=== PATIENT | male | born 1975 | race Caucasian/White ===

== ENCOUNTER → 2018-10-21 08:43 | Outpatient (CLI) | payer MEDICAID, SELFPAY ==
[2018-10-15 09:30] VITALS: BMI 17.9
--- NOTE | 2018-10-21 09:01 | RAD_ITS ---
STUDY: X-RAY - RIGHT FOOT CLINICAL: Male, 43 years old. Polyneuropathy TECHNIQUE: . 2. view(s) of the foot. COMPARISON: None. FINDINGS: Normal talus, calcaneus, and tarsal bones. Normal visualized subtalar, talonavicular, calcaneocuboid, tarsal and tarsometatarsal articulations. Normal metatarsi. Normal metatarsophalangeal joint of the great toe. Normal tibial and fibular sesamoid bones. Normal interphalangeal joint of the great toe. Normal phalanges of the great toe. Normal second through fifth metatarsophalangeal joints. Normal interphalangeal joints and phalanges of the lesser toes. The soft tissue structures are unremarkable. RAD/Foot 2 Views IMPRESSION: Normal x-ray examination of the foot. Electronically Signed: Davon Samano MD at 20:03 EST , Service support ,
--- NOTE | 2018-10-21 09:09 | RAD_ITS ---
STUDY: X-RAY - LEFT FOOT CLINICAL: Male, 43 years old. Polyneuropathy TECHNIQUE: 2 view(s) of the foot. COMPARISON: None. FINDINGS: Normal talus, calcaneus, and tarsal bones. Normal visualized subtalar, talonavicular, calcaneocuboid, tarsal and tarsometatarsal articulations. Normal metatarsi. Normal metatarsophalangeal joint of the great toe. Normal tibial and fibular sesamoid bones. Normal interphalangeal joint of the great toe. Normal phalanges of the great toe. Normal second through fifth metatarsophalangeal joints. Normal interphalangeal joints and phalanges of the lesser toes. The soft tissue structures are unremarkable. RAD/Foot 2 Views IMPRESSION: Normal x-ray examination of the foot. Electronically Signed: Davon Samano MD at 20:04 EST , Service support ,
[2018-10-21 09:31] LABS: Erythrocyte Sedimentation Rate 3 mm/hr (0-15)
[2018-10-21 09:41] LABS: Absolute Lymphocyte Count 2.32 X10^3/ul (0.83-4.51); Basophil# 0.05 X10^3/uL; Basophil% 0.5 % (0-1); Differential Indicated SCAN CRITERIA MET; Eosinophil# 0.11 X10^3/uL; Eosinophils% 1.1 % (0-5); Hemoglobin 15.1 g/dl (13.0-16.5); Lymphocyte # 2.32 X10^3/ul (4.0); Lymphocyte % 22.3 % (19-41); Mean Corp Hgb Conc 32.8 g/gl (32-36); Mean Corpuscular Hgb 35.2 pg (27.0-32.0); Mean Corpuscular Volume 107.2 fL (80-94); Mean Platelet Vol. 9.3 fl (6.2-12.0); Monocyte# 1.72 X10^3/uL; Monocyte% 16.5 % (0-10); Neutrophil # 6.03 X10^3/uL (2.7-7.7); POSITIVE COUNT NO; POSITIVE DIFFERENTIAL YES; POSITIVE MORPHOLOGY NO; Platelet Count 222 K/mm3 (150-450); RBC Distribution Width CV 13.3 % (11.6-14.6); RBC Distribution Width SD 51.8 fl (35.1-43.9); Red Blood Count 4.29 M/mm3 (4.6-6.2); White Blood Count 10.4 K/mm3 (4.4-11.0)
[2018-10-21 10:00] LABS: BUN 8 mg/dL (7-18); Creatinine, Serum 0.68 mg/dL (0.70-1.30); EST Glomerular Filtration Rate 135 mL/min (>60); Glucose 82 mg/dL (74-106)
[2018-10-21 10:01] LABS: AST(SGOT) 52 U/L (15-37); Alanine Aminotransfer ALT/SGPT 42 U/L (16-61); Albumin, Serum 3.9 g/dL (3.2-5.0); Alkaline Phosphatase 90 U/L (45-117); Anion Gap 9 (5-15); BUN/Creat Ratio 11.7 RATIO (10-20); Calcium,Total 9.2 mg/dL (8.5-10.1); Chloride 103 mmol/L (98-107); Est Glom Filt Rate - Afr Amer 163 mL/min (>60); Globulin 4.1 g/dL (2.2-4.2); Potassium 4.4 mmol/L (3.5-5.1); Sodium Level 139 mmol/L (136-145); Thyroid Stim Hormone (TSH) 3.65 uIU/mL (0.358-3.74)
== END ==
PROVIDERS: Family Provider Family Medicine; PCP Family Medicine; Referring Provider Family Medicine; Visit Provider Family Medicine
DX: G62.9 Polyneuropathy, unspecified (principal)
CPT/HCPCS: 36415; 73620; 80053; 84443; 85025; 85652

== ENCOUNTER → 2018-10-22 11:10 | Outpatient (CLI) | payer MEDICAID, SELFPAY ==
[2018-10-15 09:30] VITALS: BMI 17.9
[2018-10-22 12:30] LABS: Vitamin B12 1231 pg/mL (211-911)
== END ==
PROVIDERS: Family Provider Family Medicine; PCP Family Medicine; Referring Provider Family Medicine; Visit Provider Family Medicine
DX: D53.9 Nutritional anemia, unspecified (principal)
CPT/HCPCS: 36415; 82607; 82746; 83921

== ENCOUNTER → 2018-10-28 08:07 | Outpatient (CLI) | payer MEDICAID, SELFPAY ==
[2018-10-15 09:30] VITALS: BMI 17.9
--- NOTE | 2018-10-28 10:50 | NEURO_ITS ---
NCS and/or EMG Patient Report Ordering Doctor: Bal Esposito DATE OF SERVICE: 10/28/18 This is a bilateral lower extremity nerve conduction study and a right lower extremity EMG performed on this 43-year-old male who is otherwise healthy, reports that he drinks alcohol only occasionally. He has had burning pain in h is feet for approximately 1 year. There is no back pain and no history of diabetes. Bilateral lower extremity sensory and motor nerve conduction studies performed. The bilateral common peroneal and tibial motor velocities are slowed with decreased amplitudes and prolonged latencies relatively symmetrically. The sural sensory responses are relatively preserved. There is prolongation of the tibial and common peroneal F-wave latencies bilaterally and the H reflex responses from the bilateral tibial nerve is reduced. Right lower extremity needle electromyography is performed. Muscles evaluated included the extensor digitorum brevis, abductor houses, medial gastrocnemius, anterior tibialis, vastus lateralis and vastus medialis muscles. All muscles demonstrated absence of pathologic spontaneous activity or abnormal insertional activity. Distal muscle did demonstrate large motor units however this abnormality resolved with more proximal muscles. There is no radicular pattern. Impression: Abnormal elective his like study of the lower extremities consistent with moderate to severe peripheral neuropathy likely idiopathic in the absence of other health issues, significant alcohol intake, or vitamin deficiency. Other studies could include serum protein and urine protein electrophoresis, vitamin B12 levels, and hepatic panels.
== END ==
PROVIDERS: Family Provider Family Medicine; PCP Family Medicine; Referring Provider Podiatrist Foot & Ankle Surgery; Visit Provider Podiatrist Foot & Ankle Surgery
DX: G60.9 Hereditary and idiopathic neuropathy, unspecified (principal)
CPT/HCPCS: 95886; 95910

== ENCOUNTER → 2018-12-10 06:58 | Outpatient (CLI) | payer MEDICAID, SELFPAY ==
[2018-11-10 09:04] VITALS: BMI 18.1
--- NOTE | 2018-12-10 07:01 | CT_ITS ---
STUDY: CT TEMPORAL BONES WITHOUT CONTRAST - ATTN: I.A.C. S REASON FOR EXAM: Male, 43 years old. Right-sided mandibular joint fistula. RADIATION DOSAGE (If Supplied By Facility): CTDIvol = ( 67.58 ) mGy, DLP = ( 582.46 ) mGycm TECHNIQUE: The patient was scanned in a multi detector CT scanner. Transaxial imaging was performed without the administration of intravenous contrast material. Sagittal and coronal images were reconstructed. Individualized dose optimization techniques were used for this CT. COMPARISON: None. FINDINGS: Several air bubbles are seen in the soft tissues at the level of the right temporomandibular joint. This extends into the oropharynx medially and overlying the right side of the mandibular ramus on the right side. RIGHT TEMPORAL BONE Normal right internal auditory canal. Normal visualized ossicles and tympanic cavity. Normal right cochlea and semicircular canals. Normal vestibular aqueduct. Normal right petrous carotid artery. Normal right jugular fossa. Partial opacification of the anterior right mastoid air cells. Normal right petrous apex. LEFT TEMPORAL BONE Normal left internal auditory canal. Normal visualized ossicles and tympanic cavity. Normal left cochlea and semicircular canals. Normal vestibular aqueduct. Normal left petrous carotid artery. Normal right jugular fossa. Normal left mastoid air cells. Normal left petrous apex. CT/Orb Sella Post Fossa Ear w/o IMPRESSION: Bubbles are seen in the soft tissues at the level the right temporal mandibular joint. This extends into the oropharynx medially and overlying the right side of the mandibular ramus. Electronically Signed: Alexander Clemens, at 15:54 EDT , Service support ,
== END ==
PROVIDERS: Family Provider Family Medicine; PCP Family Medicine; Referring Provider Otolaryngology; Visit Provider Otolaryngology
DX: M26.69 Other specified disorders of temporomandibular joint (principal)
CPT/HCPCS: 70480

== ENCOUNTER → 2019-07-21 11:06 | Outpatient (CLI) | payer MEDICAID, SELFPAY ==
[2019-07-21 10:40] VITALS: BMI 18.1
[2019-07-21 12:48] LABS: AST(SGOT) 245 U/L (15-37); Alanine Aminotransfer ALT/SGPT 110 U/L (16-61); Albumin, Serum 4.4 g/dL (3.2-5.0); Alkaline Phosphatase 106 U/L (45-117); Bilirubin, Direct 0.17 mg/dL (0.00-0.30); Globulin 3.9 g/dL (2.2-4.2); Protein, Total 8.3 g/dL (6.4-8.2)
[2019-07-27 20:31] LABS: Arsenic 7245 6 ug/L (2-23); Lead, Blood 2 ug/dL (0-4)
== END ==
PROVIDERS: Family Provider Family Medicine; PCP Family Medicine; Visit Provider Family Medicine
DX: G62.9 Polyneuropathy, unspecified (principal); F10.10 Alcohol abuse, uncomplicated
CPT/HCPCS: 36415; 80076; 80320; 82140; 82175; 83655; 83825; G0480

== ENCOUNTER 2020-03-06 09:30 | Outpatient (RCR) | payer MEDICAID, SELFPAY ==
[2020-02-15 14:32] VITALS: BMI 18.1
[2020-02-21 08:30] VITALS: BP 117/64; PULSE 78; RESP 16; TEMP 36.8; BMI 20.4
--- NOTE | 2020-02-21 14:36 | HP.PCM_ITS ---
History of Present Illness Date of Service: 02/21/20 Chief Complaint: Infected tattoos left upper extremity with partial thickness nicole (approximately 5% TBSA). History of Wound: 45 year old man presents to the Wound Center today with increasing redness and pain and swelling around recently placed tattoos left upper extremity. He went to the ED on 02/10/20 for evaluation. He was placed on Bactrim DS and started applying Bacitracin to the tattoo burn wounds. He denies fever. Past Medical History Past Medical History: Chronic Problems (Last Reviewed 02/15/20 @ 14:30 by Riccardo Suarez) Macrocytosis (Chronic) History of acute pancreatitis (Chronic) Depression (Chronic) Legally blind (Chronic) This patient has been legally blind as far as he can recall since his elementary school age. He has been told that he has some degree of retinopathy and that it is not treatable. Hypertension (Chronic) Vision problems (Chronic) Legally Blind Neuropathy (Chronic) High cholesterol (Chronic) Allergies/Adverse Reactions: Allergies doxycycline Allergy (Verified 02/28/20 11:07) Rash Home Medications: Ambulatory Orders Medication Instructions Recorded vitamin B12 1,000 mcg-folic acid 1 tab SUBLINGUAL DAILY tab 10/15/18 400 mcg sublingual tablet Potassium Phosphate,Monobasic 1 tab PO DAILY 11/10/18 [K-Phos Original] Thiamine HCl [Vitamin B-1] 100 mg PO DAILY 11/10/18 ascorbate calcium (vitamin C) 500 500 mg PO DAILY 07/21/19 mg tablet [id number] 1 cap PO TID #90 cap 10/14/19 15,000-47,000-63,000 unit capsule,delayed rel lipase 10,500-protease 1 cap PO TID #90 cap 12/14/19 35,500-amylase 61,500 unit capsule,delayed rel escitalopram oxalate 20 mg tablet 20 mg PO DAILY #90 tab 01/11/20 diclofenac sodium 50 mg 50 mg PO BID #60 tab 01/20/20 tablet,delayed release Doxycycline [Vibramycin] 100 mg PO BID #42 cap 02/21/20 oxycodone-acetaminophen 5 mg-325 1 tab PO 4X/DAY PRN 7 Days #28 tab 02/28/20 mg tablet chlordiazepoxide HCl 10 mg capsule 10 mg PO Q12H #30 cap 03/02/20 metoprolol succinate 50 mg 50 mg PO DAILY #90 tab 03/02/20 tablet,extended release 24 hr pregabalin 75 mg capsule 75 mg PO Q8H #90 cap 03/02/20 Smoking Status: Current every day smoker Review of Systems Constitutional: No body ache, chills, excessive sweating, fatigue, fever(s), frequent falls, headache(s), snoring, weakness, weight change, sleep problems, change in appetite. Eyes: No blurry vision, change in vision, eye pain, light sensitivity. ENT: No abnormal hearing, ear pain, tinnitus, nasal congestion, headache(s), neck pain, sore throat. Respiratory: No cough, shortness of breath, snoring, wheezing. Cardiology: No chest pain at rest, chest pain with exertion, excessive sweating, shortness of breath, dyspnea on exertion, lightheadedness, orthopnea, palpitations. GI: No abdominal pain, change in bowel habits, constipation, cramping, diarrhea, blood in stool, nausea /dyspepsia, vomiting. Genitourinary Male: No burning urination, painful urination, urinary incontinence, urinary frequency, testicle lump, testicle pain. Musculoskeletal: Positive for joint pain (left shoulder pain) and limited range of motion (left shoulder pain);. no abnormal walking, neck pain, numbness or tingling. Skin: Positive for wounds (infected tattoo on left arm);. no dry skin, redness, itching, rash. Neurology: No abnormal walking, abnormal hearing, abnormal speech, dizziness, weakness, frequent falls, headache(s), memory loss, numbness, tingling. Psychiatric: No anxiety, No change in appetite, No depression, No memory loss, No Thoughts of harming yourself/Others. Endocrine: No cold intolerance, excessive sweating, fatigue, flushing, heat intolerance, increased thirst/drinking, increased hunger. Allergy/Immunologic: No itchy eyes, seasonal allergy symptoms, hives, wheezing. Hematologic/Lymphatic: No easy bleeding, easy bruising, enlarged lymph nodes - Physical Exam General: cooperative, comfortable, no acute distress Orientation: alert, oriented x3 Respiratory: clear to auscultation. Heart: regular rate and rhythm. Abdomen: Soft, nondistended. Extremities: Has multiple star tattoos on left upper extremity. Some dermatitis present around them probably from the Bacitracin. Some of the star tattoos show a partial thickness injury like a burn. The partial thickness injuries are scattered and represent about 5% TBSA. Mild swelling present. Partial thickness tattoo injuries are tender to palpation. No axillary adenopathy. Has difficulty with extending the elbow and pronating and supinating the forearm secondary to pain. Hand is nontender. Radial pulses are palpable. Neuro: CN II-XII grossly intact. Psych: Normal affect and mood. Temp Pulse Resp BP 98.2 F 78 16 117/64 02/21/20 08:30 02/21/20 08:30 02/21/20 08:30 02/21/20 08:30 Wound Measurements and Assessment WC - Nurse 1 - General Ulcer Measurement Start: 02/21/20 08:28 Freq: Status: Active Protocol: Activity Type Activity Date Activity User E-Sign Co-Sign Detail Recorded Client Recorded Date Recorded By Document 02/21/20 08:30 BM [id number] 02/21/20 08:40 BMF 02/21/20 08:30 Wound Center Nurse 1 [Ulcer Assessment] #1- L ARM CIRCUMFERENTIAL -Combined with other wound No -Current Size (cm) - Length 48 -Current Size (cm) - Width 28 -Current Size (cm) - Depth 0.2 -Total Square Cm 1344 -Date of Last Picture (Recall this 02/21/20 field) -Photo Taken Yes -Epithelialization None Present -Tunneling No -Undermining/Tunneling No -Circular Undermining No -Exudate Amt Small -Exudate Type Serosanguineous -Wound Margin Distinct, Outline Attached -Granulation Amt Small (1-33%) -Granulation Quality Red -Slough/Fibrin Yes -Necrosis Amt Large (67-100%) -Necrotic Tissue Type Adherent Slough -Texture (Geeta-wound Skin Appearance) Assessed, Excoriation, Localized Edema -Moisture (Geeta-wound Skin Appearance Assessed, ) Maceration -Color (Geeta-wound Skin Appearance) Assessed, Erythema -Temperature (Geeta-wound Skin No Abnormality Appearance) (Pt Warm) -Tenderness on Palpation (Geeta-wound Yes Skin Appearance) -Ulcer Cleansing SOAPY WATER -Foul Odor after Cleansing No -Anesthetic Used 4% Lidocaine Solution WC - Nurse 2 - General Ulcer CM Notes Start: 02/21/20 08:28 Freq: Status: Active Protocol: Activity Type Activity Date Activity User E-Sign Co-Sign Detail Recorded Client Recorded Date Recorded By Document 02/21/20 08:55 JF [id number] 02/21/20 09:02 02/21/20 08:55 Wound Center Nurse 2 [Procedure/Treatment] -Correct Patient No -Correct Side, Site, Position No -Correct Procedure No -Procedure Performed No -Wound/Ulcer Outcome Not Healed [See Physician Procedure note for Specifics] Pain Scale: 0-10 Numeric [Pain] -Is Patient Pain Free? Yes Debridement Note Post-Debridement Measurements/Treatment WC - Nurse 2 - General Ulcer CM Notes Start: 02/21/20 08:28 Freq: Status: Active Protocol: Activity Type Activity Date Activity User E-Sign Co-Sign Detail Recorded Client Recorded Date Recorded By Document 02/21/20 08:55 JF [id number] 02/21/20 09:02 02/21/20 08:55 Wound Center Nurse 2 #1- L ARM CIRCUMFERENTIAL -Correct Patient No -Correct Side, Site, Position No -Correct Procedure No -Procedure Performed No -Wound/Ulcer Outcome Not Healed Pain Scale: 0-10 Numeric Is Patient Pain Free? Yes Wound debrided: #1 Left upper extremity. Laterality: Left Wound Grade/Stage: 2. No debridement was completed today Assessment/Plan Assessment: 1. Infected tattoo partial thickness burn wounds left upper extremity, about 5% TBSA. 2. Placement recent tattoos left upper extremity. 3. Smoker. Plan: Patient has infected tattoos partial thickness wounds left upper extremity. There is some associated dermatitis from the antibiotic ointment. Will stop the antibiotic ointment. For the partial thickness wounds, will treat as a burn wound and start Silvadene twice a day. Instructed the patient that it is important to wash off in the shower the previous Silvadene before applying new Silvadene. For the swelling and redness, will start Doxycycline antibiotics. The wounds are quite tender. Will write a script for Percocet for pain (40 tabs). Encourage range of motion exercises to minmize stiffness. May need evaluation by OT if stiffness develops. Discussed with the patient that depending on how the healing process occurs, operative debridement and skin grafting may be necessary. He is aware of that possibility and wishes to proceed with the current plan of aggressive wound care and antibiotics. Followup one week. Encouraged patient to stop smoking as it may have tasha terious effects on wound heailng. Office Visits / Consults: [id number] OV L4 New - ICD-10 - T22.292A, L92.3, F17.200
[2020-02-28 09:06] VITALS: BP 125/79; PULSE 79; RESP 18; TEMP 37; BMI 20.4
--- NOTE | 2020-02-28 09:15 | WC ---
PT C/O ITCHING AND NEW RASH ON ABD FACE, ARMS , BUTTOCKS. PT CALLED PCP AND TO0LD TO STOP ATB CREAM AND ORAL ATB
--- NOTE | 2020-02-28 11:11 | PN.PCM_ITS ---
(1) Tattoo reaction Status: Acute Code(s): L92.3 - Foreign body granuloma of the skin and subcutaneous tissue (2) Partial thickness burn of multiple sites of left upper extremity Status: Acute Code(s): T22.292A - Burn of second degree of multiple sites of left shoulder and upper limb, except wrist and hand, initial encounter Comment: infected tattoos, about 5% TBSA (3) Smoker Status: Chronic Code(s): F17.200 - Nicotine dependence, unspecified, uncomplicated Type of Wound Date of Service: 02/28/20 Chief Complaint: Infected tattoos left upper extremity with partial thickness nicole (approximately 5% TBSA). History of Wound: 45 year old man presents to the Wound Center with increaseing redness and pain and swelling around recently placed tattoos left upper extremity. He went to the ED on 02/10/20 for evaluation. He was placed on Bactrim DS and started applying Bacitracin to the tattoo burn wounds. Wound care - Silvedene cream. He was placed on Doxycycline after he had completed the Bactrim DS. He states that developed an itchy rash all over his body. He phoned his PCP and they had him stop the Doxycycline and the Silvadene cream. We will restrart the daily Silvaden. Instructed to make sure to wash the old silvadene cream off of arm before applying more. He denies fever. Progress of Wound: Stable - Physical Exam Vital Signs Temp Pulse Resp BP 98.6 F 79 18 125/79 H 02/28/20 09:06 02/28/20 09:06 02/28/20 09:06 02/28/20 09:06 General: Alert, Oriented x3 HEENT: Atraumatic Oral: Moist Mucosa Lungs: Normal air movement Cardiovascular: Regular rate Abdomen: Soft Extremities: Capillary Refill Less than 3 Seconds Skin: Ulcer/ Wound - Left arm cluster opened area from having recently had multiple tattoos placed on arm. Over all the skin is pink and very tender to touch. Wound Measurements and Assessment WC - Nurse 1 - General Ulcer Measurement Start: 02/21/20 08:28 Freq: Status: Active Protocol: Activity Type Activity Date Activity User E-Sign Co-Sign Detail Recorded Client Recorded Date Recorded By Document 02/28/20 09:06 JOSE [id number] 02/28/20 09:13 RB 02/28/20 09:06 Wound Center Nurse 1 [Ulcer Assessment] #1- L ARM CIRCUMFERENTIAL -Combined with other wound No -Current Size (cm) - Length 25 -Current Size (cm) - Width 7 -Current Size (cm) - Depth 0.2 -Total Square Cm 175 -Tunneling No -Undermining/Tunneling No -Circular Undermining No -Exudate Amt Medium -Exudate Type Serosanguineous -Wound Margin Flat & Intact -Granulation Amt Medium (34-66%) -Granulation Quality [place],Red -Slough/Fibrin Yes -Necrosis Amt Small (1-33%) -Necrotic Tissue Type Adherent Slough -Structure Exposed N/A -Texture (Geeta-wound Skin Appearance) Assessed -Moisture (Geeta-wound Skin Appearance Assessed ) -Color (Geeta-wound Skin Appearance) Erythema -Temperature (Geeta-wound Skin No Abnormality Appearance) (Pt Warm) -Tenderness on Palpation (Geeta-wound No Skin Appearance) -Ulcer Cleansing Wound Cleanser -Foul Odor after Cleansing No -Anesthetic Used 4% Lidocaine Solution WC - Nurse 2 - General Ulcer CM Notes Start: 02/21/20 08:28 Freq: Status: Active Protocol: Activity Type Activity Date Activity User E-Sign Co-Sign Detail Recorded Client Recorded Date Recorded By Document 02/28/20 09:32 ANTONIA [id number] 02/28/20 09:36 ANTONIA 02/28/20 09:32 Wound Center Nurse 2 [Procedure/Treatment] -Time 09:32 -Correct Patient Yes -Correct Side, Site, Position Yes -Correct Procedure Yes -Procedure Performed Yes -Type of Procedure Debridement -Clinical Debridement Selective -Post Debridement Size (cm) - Length 33.0 -Post Debridement Size (cm) - Width 19.0 -Post Debridement Size (cm) - Depth 0.1 -Total Square Cm 627.00 -Wound/Ulcer Outcome Not Healed -Ulcer Cleansing Rinsed/ Irrigated with Saline -Foul Odor after Cleansing No -Bioengineered Tissue No -Bleeding Controlled with Pressure -Offloading No -Treatment Response Procedure Tolerated Well [See Physician Procedure note for Specifics] Pain Scale: 0-10 Numeric [Pain] -Is Patient Pain Free? Yes Musculoskeletal: No Muscle Wasting Neurological: Neuro grossly intact Psych/Mental Status: Normal Affect, Appropriate Debridement Note Post-Debridement Measurements/Treatment WC - Nurse 2 - General Ulcer CM Notes Start: 02/21/20 08:28 Freq: Status: Active Protocol: Activity Type Activity Date Activity User E-Sign Co-Sign Detail Recorded Client Recorded Date Recorded By Document 02/21/20 08:55 [id number] 02/21/20 09:02 Document 02/28/20 09:32 [id number] 02/28/20 09:36 02/21/20 02/28/20 08:55 09:32 Wound Center Nurse 2 #1- L ARM CIRCUMFERENTIAL -Time 09:32 -Correct Patient No Yes -Correct Side, Site, Position No Yes -Correct Procedure No Yes -Procedure Performed No Yes -Type of Procedure Debridement -Clinical Debridement Selective -Post Debridement Size (cm) - Length 33.0 -Post Debridement Size (cm) - Width 19.0 -Post Debridement Size (cm) - Depth 0.1 -Total Square Cm 627.00 -Wound/Ulcer Outcome Not Healed Not Healed -Ulcer Cleansing Rinsed/ Irrigated with Saline -Foul Odor after Cleansing No -Bioengineered Tissue No -Bleeding Controlled with Pressure -Offloading No -Treatment Response Procedure Tolerated Well Pain Scale: 0-10 Numeric Is Patient Pain Free? Yes Yes Wound debrided: Arm cluster opened areas Laterality: Left Type of Debridement: Selective debridement Anesthesia Used: 5% Lidocaine Gel Depth: Down to and including healthy tissue, in the subcutaneous layer Percentage of wound debrided: 100 Instrument Used: 5mm curette Tissue Removed: Subcutaneous tissue and slough Severity: Limited To Skin Breakdown Amount of bleeding with debridement: Mild Bleeding Controlled with: Pressure Patient tolerated procedure well Assessment/Plan Assessment: 1. Infected tattoo partial thickness burn wounds left upper extremity, about 5% TBSA. 2. PLacement recent tattoos left upper extremity. 3. Smoker. Plan: Patient has infected tattoos partial thickness wounds left upper extremity. For the partial thickness wounds, will treat as a burn wound and start Silvadene twice a day-he will restart this this week. Instructed the patient that is important to wash off in the shower the previous Silvadene befo re applying new Silvadene. He will use a Tubigrip for swelling. For the swelling and redness, he was started Doxycycline antibiotics, but developed a full body rash. He was instructed by his PCP to stop both the Doxy and Silvadene cream. Instructed him about drug rashes and that he may take OTC benedryl to help with the itching. Encouraged range of motion exercises to minimize stiffness. Ordered evaluation of OT for range of motion, strengthening, pain control and swelling. Discussed [facility] patient that depending on how the healing process occurs, operative debridement and skin grafting may be necessary. He is aware of that possibility and wishes to proceed with the current plan of aggressive wound care and antibiotics. Follow up one week. Renewed Percocet for pain (28) tabs. PDMP reviewed. Encouraged the patient to stop smoking as it may have deleterious effects on wound healing. Selective debridement [id number] and [id number] x [phone]
--- NOTE | 2020-03-02 09:40 | WC ---
patient's mom was complaining on Friday's appt that she called twice and left a message last regarding the side effect her son was having with the Doxycycline. No one called her back regarding this matter. I addressed her concerns with her with the MEDICAL [employer]OR [employer] in the room and apologized for any miscommunication. Later that day (Friday02/28/20) I spoke to my nurse manager [employer] regarding the patient's mom's complaint. He did inform me that they received an voicemail twice from a lady who did not leave the patient's name nor did she leave a working number. The phone number that was left was a non-working number so the Wound center was unable to figure out who left the message. I notified the patient's mom and informed her that when she calls again, to leave the patient's name so we can address any concerns, let alone, an active working phone number. She verbalized understanding.
[2020-03-06 09:29] VITALS: BP 142/90; PULSE 74; RESP 22; TEMP 36.8; BMI 20.4
--- NOTE | 2020-03-06 15:44 | PCM.WC.PN ---
(1) Partial thickness burn of multiple sites of left upper extremity Status: Acute Current Visit: Yes Code(s): T22.292A - Burn of second degree of multiple sites of left shoulder and upper limb, except wrist and hand, initial encounter Comment: infected tattoos, about 5% TBSA (2) Tattoo reaction Status: Acute Current Visit: Yes Code(s): L92.3 - Foreign body granuloma of the skin and subcutaneous tissue (3) Smoker Status: Chronic Current Visit: Yes Code(s): F17.200 - Nicotine dependence, unspecified, uncomplicated Type of Wound Date of Service: 03/06/20 Chief Complaint: Infected tattoos left upper extremity with partial thickness nicole (approximately 5% TBSA). History of Wound: 45 year old man presents to [facility] with increaseing redness and pain and swelling around recently placed tattoos left upper extremity. He went to the ED on 02/10/20 for evaluation. He was placed on Bactrim DS and started applying Bacitracin to the tattoo burn wounds. Wound care - Silvedene cream. He was placed on Doxycycline after he had completed the Bactrim DS. He states that developed an itchy rash all over his body. He phoned his PCP and they had him stop the Doxycycline and the Silvadene cream. Wound care- stop Silvadene cream and start collagen hydrogel to the opened areas and cover with adaptic. Wash daily with soap and water. He denies fever. Progress of Wound: Stable - Physical Exam Vital Signs Temp Pulse Resp BP 98.2 F 74 22 H 142/90 H 03/06/20 09:29 03/06/20 09:29 03/06/20 09:29 03/06/20 09:29 General: Alert, Oriented x3, Cooperative HEENT: Atraumatic Oral: Moist Mucosa Lungs: Normal air movement Cardiovascular: Regular rate Extremities: Capillary Refill Less than 3 Seconds, Edema - left arm Skin: Ulcer/ Wound - Cluster on left arm of opened areas. Wound Measurements and Assessment WC - Nurse 1 - General Ulcer Measurement Start: 02/21/20 08:28 Freq: Status: Active Protocol: Activity Type Activity Date Activity User E-Sign Co-Sign Detail Recorded Client Recorded Date Recorded By Document 03/06/20 09:29 DL [id number] 03/06/20 09:39 DL 03/06/20 09:29 Wound Center Nurse 1 [Ulcer Assessment] #1- L ARM CIRCUMFERENTIAL -Current Size (cm) - Length 8 -Current Size (cm) - Width 5 -Current Size (cm) - Depth 0.2 -Total Square Cm 40 -Photo Taken No -Exudate Amt Small -Exudate Type Serosanguineous -Wound Margin Indistinct, Non -Visible -Granulation Amt Large (67-100%) -Granulation Quality Stepping Stone -Necrosis Amt Small (1-33%) -Necrotic Tissue Type Adherent Slough -Structure Exposed N/A -Texture (Geeta-wound Skin Appearance) Scarring -Moisture (Geeta-wound Skin Appearance No Abnormality ) -Color (Geeta-wound Skin Appearance) Erythema,Rubor -Temperature (Geeta-wound Skin No Abnormality Appearance) (Pt Warm) -Tenderness on Palpation (Geeta-wound Yes Skin Appearance) -Ulcer Cleansing Wound Cleanser -Foul Odor after Cleansing No -Anesthetic Used 4% Lidocaine Solution WC - Nurse 2 - General Ulcer CM Notes Start: 02/21/20 08:28 Freq: Status: Active Protocol: Activity Type Activity Date Activity User E-Sign Co-Sign Detail Recorded Client Recorded Date Recorded By Document 03/06/20 10:02 ANTONIA [id number] 03/06/20 10:07 ANTONIA 03/06/20 10:02 Wound Center Nurse 2 [Procedure/Treatment] -Time 10:02 -Correct Patient Yes -Correct Side, Site, Position Yes -Correct Procedure Yes -Procedure Performed Yes -Type of Procedure Debridement -Clinical Debridement Subcutaneous -Post Debridement Size (cm) - Length 12.5 -Post Debridement Size (cm) - Width 10.5 -Post Debridement Size (cm) - Depth 0.2 -Total Square Cm 131.25 -Wound/Ulcer Outcome Not Healed -Ulcer Cleansing Rinsed/ Irrigated with Saline -Foul Odor after Cleansing No -Bioengineered Tissue No -Bleeding Controlled with Pressure -Offloading No -Treatment Response Procedure Tolerated Well [See Physician Procedure note for Specifics] Pain Scale: 0-10 Numeric [Pain] -Is Patient Pain Free? Yes Musculoskeletal: No Tenderness to Palpation of Joints or Extremities Neurological: Neuro grossly intact Psych/Mental Status: Appropriate Debridement Note Post-Debridement Measurements/Treatment WC - Nurse 2 - General Ulcer CM Notes Start: 02/21/20 08:28 Freq: Status: Active Protocol: Activity Type Activity Date Activity User E-Sign Co-Sign Detail Recorded Client Recorded Date Recorded By Document 02/21/20 08:55 [id number] 02/21/20 09:02 Document 02/28/20 09:32 [id number] 02/28/20 09:36 Document 03/06/20 10:02 [id number] 03/06/20 10:07 02/21/20 02/28/20 03/06/20 08:55 09:32 10:02 Wound Center Nurse 2 #1- L ARM CIRCUMFERENTIAL -Time 09:32 10:02 -Correct Patient No Yes Yes -Correct Side, Site, Position No Yes Yes -Correct Procedure No Yes Yes -Procedure Performed No Yes Yes -Type of Procedure Debridement Debridement -Clinical Debridement Selective Subcutaneous -Post Debridement Size (cm) - Length 33.0 12.5 -Post Debridement Size (cm) - Width 19.0 10.5 -Post Debridement Size (cm) - Depth 0.1 0.2 -Total Square Cm 627.00 131.25 -Wound/Ulcer Outcome Not Healed Not Healed Not Healed -Ulcer Cleansing Rinsed/ Rinsed/ Irrigated with Irrigated with Saline Saline -Foul Odor after Cleansing No No -Bioengineered Tissue No No -Bleeding Controlled with Pressure Pressure -Offloading No No -Treatment Response Procedure Procedure Tolerated Well Tolerated Well Pain Scale: 0-10 Numeric Is Patient Pain Free? Yes Yes Yes Wound debrided: arm cluster Laterality: Left Type of Debridement: Excisional debridement Anesthesia Used: 5% Lidocaine Gel Depth: Down to and including healthy tissue, in the subcutaneous layer Percentage of wound debrided: 100 Instrument Used: 5mm curette Tissue Removed: Subcutaneous tissue and slough Severity: Limited To Skin Breakdown Amount of bleeding with debridement: Mild Bleeding Controlled with: Pressure Patient tolerated procedure well Assessment/Plan Active Problems (Last Reviewed 02/15/20 @ 14:30 by Riccardo Suarez) Smoker (Chronic) Tattoo reaction (Acute) Partial thickness burn of multiple sites of left upper extremity (Acute) infected tattoos, about 5% TBSA Assessment: 1. Infected tattoo partial thickness burn wounds left upper extremity, about 5% TBSA. 2. PLacement recent tattoos left upper extremity. 3. Smoker. Plan: Patient has infected tattoos partial thickness wounds left upper extremity. For the partial thickness wounds. Wound care- will stop the Silvadene cream and start collagen hydrogel covered with adaptic to the opened areas. Instructed the patient that is important to wash off in the shower the previous Silvadene before applying new Silvadene. He will use a Tubigrip for swelling. For the swelling and redness, he was started Doxycycline antibiotics, but developed a full body rash. He was instructed by his PCP to stop both the Doxy and Silvadene cream. Instructed him about drug rashes and that he may take OTC benedryl to help with the itching. He went back to the ED over the weekend because of the itching and severity of the rash. Rash looks much better this week compared to last week. Encouraged range of motion exercises to minimize stiffness. Ordered evaluation of OT for range of motion, strengthening, pain control and swelling. Discussed wth patient that depending on how the healing process occurs, operative debridement and skin grafting may be necessary. He is aware of that possibility and wishes to proceed with the current plan of aggressive wound care and antibiotics. Follow up one week. Encouraged the patient to stop smoking as it may have deleterious effects on wound healing. [id number]: [id number] Swathi subq tissue 20 sq cm/< Add On Codes: 10589 Swathi subq tissue add-on - x6
== END 2020-03-07 23:59 ==
LOC: WC 09:30
PROVIDERS: PCP Family Medicine; Visit Provider Surgery
DX: T22.292A Burn of second degree of multiple sites of left shoulder and upper limb, except wrist and hand, initial encounter (principal); T31.0 Burns involving less than 10% of body surface; F17.200 Nicotine dependence, unspecified, uncomplicated; L92.3 Foreign body granuloma of the skin and subcutaneous tissue; E78.00 Pure hypercholesterolemia, unspecified; H54.8 Legal blindness, as defined in USA; G62.9 Polyneuropathy, unspecified; I10 Essential (primary) hypertension
CPT/HCPCS: 11042; 11045; 97597; 97598; 99213; G0463

== ENCOUNTER → 2021-05-16 09:37 | Outpatient (CLI) | payer MEDICAID, SELFPAY ==
[2021-05-16 12:15] LABS: Erythrocyte Sedimentation Rate < 1 mm/hr (0-20)
== END ==
PROVIDERS: PCP Family Medicine; Referring Provider Family Medicine; Visit Provider Family Medicine
DX: M60.9 Myositis, unspecified (principal)
CPT/HCPCS: 36415; 85652

== ENCOUNTER → 2022-02-18 | Outpatient (CLI) | payer MEDICARE, MEDICAID, SELFPAY ==
[2022-02-18 13:23] LABS: Hematocrit 38.8 % (40-54); Hemoglobin 13.2 g/dL (13.0-16.5); Mean Corpuscular Hgb 36.9 pg (27.0-32.0); Mean Corpuscular Volume 108.4 fL (80-94); Mean Platelet Vol. 9.6 fl (6.2-12.0); POSITIVE COUNT YES; POSITIVE MORPHOLOGY YES; Platelet Count 105 K/mm3 (150-450); RBC Distribution Width CV 12.7 % (11.6-14.6); RBC Distribution Width SD 51.1 fl (35.1-43.9); Red Blood Count 3.58 M/mm3 (4.6-6.2); White Blood Count 4.9 K/mm3 (4.4-11.0)
[2022-02-18 13:29] LABS: Vitamin B12 836 pg/mL (211-911)
[2022-02-18 13:32] LABS: Differential Indicated MANUAL DIFF
[2022-02-18 13:42] LABS: AST(SGOT) 174 U/L (15-37); Alanine Aminotransfer ALT/SGPT 87 U/L (16-61); Albumin, Serum 3.8 g/dL (3.2-5.0); Alkaline Phosphatase 92 U/L (45-117); Anion Gap 10 (5-15); BUN 2 mg/dL (7-18); BUN/Creat Ratio 3.3 RATIO (10-20); Calcium,Total 8.9 mg/dL (8.5-10.1); Chloride 103 mmol/L (98-107); Cholesterol 165 mg/dL (200); Creatinine, Serum 0.61 mg/dL (0.70-1.30); EST Glomerular Filtration Rate 152 mL/min (>60); Est Glom Filt Rate - Afr Amer 184 mL/min (>60); Glucose 112 mg/dL (74-106); High Density Lipoprotein 62 mg/dL; Potassium 3.9 mmol/L (3.5-5.1); Protein, Total 7.8 g/dL (6.4-8.2); Sodium Level 136 mmol/L (136-145); Thyroid Stim Hormone (TSH) 0.89 uIU/mL (0.358-3.74); Triglycerides 91 mg/dL; Very Low Density Lipoprotein 18 mg/dL (5-40)
[2022-02-18 14:50] LABS: Lymphocyte 34 % (19-41); Monocyte 1 % (0-10); Neutrophil-Segmented 65 % (47-70); Platelet Estimate SLT DEC (ADEQ); Red Cell Morphology NORM C+C NORMAL (NORM C&C); Total Cells Counted 100 (MANUAL DIFF)
[2022-02-18 14:51] LABS: Absolute Neutrophil Count 3.2 X10^3/uL (2.0-7.7)
[2022-02-18 14:52] LABS: Absolute Lymphocyte Count 1.67 X10^3/uL (0.83-4.51)
[2022-02-19 13:09] LABS: Pathologist Review Reviewed
== END | disposition home or self-care (01) ==
LOC: BIMLAB 12:05
PROVIDERS: PCP Family Medicine; Referring Provider Physician Assistant; Visit Provider Physician Assistant
DX: I10 Essential (primary) hypertension (principal); F10.10 Alcohol abuse, uncomplicated; G62.9 Polyneuropathy, unspecified; E78.00 Pure hypercholesterolemia, unspecified; K85.90 Acute pancreatitis without necrosis or infection, unspecified
CPT/HCPCS: 80320; 36415; 80053; 80061; 82077; 82607; 82746; 84425; 84443; 85025

== ENCOUNTER → 2023-09-11 | Outpatient (CLI) | payer MEDICARE, MEDICAID, SELFPAY ==
[2023-09-11 12:33] LABS: Absolute Lymphocyte Count 3.54 X10^3/uL (0.83-4.51); Absolute Neutrophil Count 2.2 X10^3/uL (2.0-7.7); Basophil# 0.08 X10^3/uL; Basophil% 1.2 % (0-1); Eosinophil# 0.11 X10^3/uL; Eosinophils% 1.6 % (0-5); Hematocrit 42.4 % (40-54); Hemoglobin 13.6 g/dL (13.0-16.5); Lymphocyte # 3.54 X10^3/ul (0.83-4.51); Lymphocyte % 51.3 % (19-41); Mean Corp Hgb Conc 32.1 g/dL (32-36); Mean Corpuscular Hgb 34.6 pg (27.0-32.0); Mean Corpuscular Volume 107.9 fL (80-94); Mean Platelet Vol. 9.6 fl (6.2-12.0); Monocyte# 0.84 X10^3/uL; Monocyte% 12.2 % (0-10); NRBC Flagged by Analyzer 0 % (0-5); Neutrophil % 31.8 % (47-70); Platelet Count 101 K/mm3 (150-450); RBC Distribution Width CV 13.6 % (11.6-14.6); RBC Distribution Width SD 55.2 fl (35.1-43.9); Red Blood Count 3.93 M/mm3 (4.6-6.2); White Blood Count 6.9 K/mm3 (4.4-11.0)
[2023-09-11 12:46] LABS: Erythrocyte Sedimentation Rate 8 mm/hr (0-20)
[2023-09-11 12:52] LABS: CRP < 2.90 mg/L (0.0-3.0)
[2023-09-11 13:01] LABS: ALB/GLOB Ratio 0.9 RATIO (0.9-2.4); AST(SGOT) 87 U/L (15-37); Alanine Aminotransfer ALT/SGPT 43 U/L (16-61); Albumin, Serum 3.5 g/dL (3.2-5.0); Alkaline Phosphatase 91 U/L (45-117); Anion Gap 8 (5-15); BUN 5 mg/dL (7-18); BUN/Creat Ratio 8.1 RATIO (10-20); Calcium,Total 9.1 mg/dL (8.5-10.1); Chloride 105 mmol/L (98-107); Creatinine, Serum 0.62 mg/dL (0.70-1.30); EST Glomerular Filtration Rate 148 mL/min (>60); Est Glom Filt Rate - Afr Amer 179 mL/min (>60); Glucose 88 mg/dL (74-106); Potassium 4.5 mmol/L (3.5-5.1); Protein, Total 7.5 g/dL (6.4-8.2); Sodium Level 138 mmol/L (136-145)
[2023-09-12 11:08] LABS: ANTINUCLEAR ANTIBODIES DIRECT Negative (Negative)
[2023-09-12 18:23] LABS: ANA-D Positive Table See Below N
== END | disposition home or self-care (01) ==
LOC: BIMLAB 09:53
PROVIDERS: Physician Assistant; PCP Family Medicine; Referring Provider Family Medicine; Visit Provider Family Medicine
DX: E78.00 Pure hypercholesterolemia, unspecified (principal); R21 Rash and other nonspecific skin eruption
CPT/HCPCS: 36415; 80053; 85025; 85652; 86038; 86140; 86225; 86235